=== PATIENT | female | born 1945 | race Caucasian/White ===

== ENCOUNTER → 2017-03-03 18:50 | Outpatient (CLI) | payer MEDICARE ==
[2014-12-19 01:03] VITALS: BMI 35.2
[~2017-03-03 18:50] MED LIST: BAYER CHEWABLE81 MG PO; CRESTOR5 MG PO; HYOSCYAMINE0.125 M1 SL; IMDUR30 MG PO; IPRAT-ALBUT 0.5-3 ML UPD; LACTINEX C1 TAB.CHEW PO; LIBRAX CAPSULE1 CAP PO; METAMUCIL PACKE1 PKT PO; NICODERM C1 PATCH .3 TD; NORVASC5 MG PO; PRILOSEC20 MG PO; QUESTRAN PACK4 G/PKT PO; STERAPRED 5MG 125 MG PO; ZANAFLEX4 MG PO; ZPAK PO; [UNRECOGNIZED DRUG - OTHER] PO
== END | disposition home or self-care (01) ==
LOC: D.MAMMO 15:15
DX: Z12.31 Encounter for screening mammogram for malignant neoplasm of breast (principal)

== ENCOUNTER 2018-01-19 12:20 | Emergency (ER) | payer MEDICARE, MEDICAID ==
[~2018-01-19] VITALS: Ht 157.5 cm; Wt 80.9 kg
[2018-01-19 12:30] VITALS: BP 112/75; Ht 157.5 cm; Wt 80.9 kg
[2018-01-19 13:26] LABS: BASOPHILS 0.3 % (0-2); EOSINOPHILS 1.5 % (0-7); HEMATOCRIT 43.1 % (36.0-48.0); IMMATURE GRANULOCYTES 0.2 % (0-5); LYMPHOCYTES 30.4 % (15-50); MCH 31.9 pg (26.0-34.0); MCHC 34.8 g/dL (31.0-37.0); MCV 91.7 fL (80.0-100.0); MEAN PLATELET VOLUME 9.6 fL (7.4-10.4); MONOCYTES 9.2 % (2-11); NEUTROPHILS 58.4 % (40-80); PLATELET COUNT 236 10x3/uL (130-400); RDW 13.3 % (11.5-14.5); WBC 10.9 10x3/uL (4.8-10.8)
[2018-01-19 13:36] LABS: APPEARANCE HAZY (CLEAR); BILIRUBIN NEGATIVE (NEGATIVE); COLOR DK YELLOW (YELLOW); GLUCOSE NEGATIVE (NEGATIVE); KETONE MODERATE mg/dL (NEGATIVE); NITRITE NEGATIVE (NEGATIVE); PROTEIN 1+ mg/dL (NEGATIVE); SPECIFIC GRAVITY 1.015 (1.005-1.020); UROBILINOGEN NORMAL (NORMAL)
[2018-01-19 13:40] LABS: BACTERIA MODERATE /hpf (NONE SEEN); GRANULAR CAST OCC /lpf (NONE SEEN); HYALINE CAST 0-5 /lpf (NONE SEEN); MUCUS >1+ /lpf (NONE SEEN); RED CELLS - URINE 0-5 /hpf (0-5)
[2018-01-19 13:44] LABS: ALBUMIN 3.6 g/dL (3.4-5.0); ANION GAP 13.9 mmol/L (8-16); BILIRUBIN - TOTAL 0.41 mg/dL (0.2-1.3); CALCIUM 8.8 mg/dL (8.5-10.1); CARBON DIOXIDE 24.3 mmol/L (21.0-32.0); POTASSIUM - SERUM 4.2 mmol/L (3.5-5.1); PROTEIN - SERUM 7.6 g/dL (6.4-8.2)
[2018-01-19 14:57] LABS: AMYLASE - SERUM 33 U/L (25-115); LIPASE 71 U/L (73-393)
[2018-01-19] MEDS ORDERED: MACROBID100 MG PO (18:29)
[2018-01-19] MEDS ORDERED: ZOFRAN4 MG PO (18:29)
== END 2018-01-19 19:24 | disposition home or self-care (01) ==
LOC: D.ER 12:20
PROVIDERS: Family Medicine
DX: N39.0 Urinary tract infection, site not specified (principal); R10.9 Unspecified abdominal pain; R19.7 Diarrhea, unspecified; E11.9 Type 2 diabetes mellitus without complications; I10 Essential (primary) hypertension; K21.9 Gastro-esophageal reflux disease without esophagitis; Z85.41 Personal history of malignant neoplasm of cervix uteri; F17.200 Nicotine dependence, unspecified, uncomplicated

== ENCOUNTER 2018-01-21 12:37 | Emergency (ER) | payer MEDICARE, MEDICAID ==
[~2018-01-21] VITALS: Ht 157.5 cm; Wt 85.0 kg
[~2018-01-21 12:37] MED LIST changes: +MACROBID100 MG PO; +ZOFRAN4 MG PO
[2018-01-21 12:56] VITALS: Ht 157.5 cm; Wt 85.0 kg
[2018-01-21 13:34] LABS: BASOPHILS 0.5 % (0-2); EOSINOPHILS 1.8 % (0-7); HEMATOCRIT 41.4 % (36.0-48.0); IMMATURE GRANULOCYTES 0.2 % (0-5); LYMPHOCYTES 37.4 % (15-50); MCH 31.3 pg (26.0-34.0); MCHC 33.8 g/dL (31.0-37.0); MCV 92.6 fL (80.0-100.0); MEAN PLATELET VOLUME 9.5 fL (7.4-10.4); MONOCYTES 8.7 % (2-11); NEUTROPHILS 51.4 % (40-80); PLATELET COUNT 248 10x3/uL (130-400); RBC 4.47 10x6/uL (4.00-5.40); RDW 13.4 % (11.5-14.5); WBC 10.5 10x3/uL (4.8-10.8)
[2018-01-21 13:42] LABS: ALBUMIN 3.4 g/dL (3.4-5.0); ANION GAP 13.3 mmol/L (8-16); BILIRUBIN - TOTAL 0.24 mg/dL (0.2-1.3); CARBON DIOXIDE 24.6 mmol/L (21.0-32.0); CREATININE - SERUM 1.1 mg/dL (0.6-1.3); POTASSIUM - SERUM 3.9 mmol/L (3.5-5.1); PROTEIN - SERUM 7.1 g/dL (6.4-8.2)
[2018-01-21 16:07] VITALS: BP 107/62
== END 2018-01-21 16:09 | disposition home or self-care (01) ==
LOC: D.ER 12:37
PROVIDERS: Family Medicine
DX: R19.7 Diarrhea, unspecified (principal); E11.9 Type 2 diabetes mellitus without complications; I10 Essential (primary) hypertension; Z85.41 Personal history of malignant neoplasm of cervix uteri

== ENCOUNTER 2018-02-10 16:16 | Emergency (ER) | payer MEDICARE, MEDICAID ==
[~2018-02-10] VITALS: Ht 157.5 cm; Wt 85.0 kg
[2018-02-10 16:28] VITALS: Ht 157.5 cm; Wt 85.0 kg
[2018-02-10 17:20] LABS: BASOPHILS 0.4 % (0-2); EOSINOPHILS 2.4 % (0-7); HEMATOCRIT 40.8 % (36.0-48.0); HEMOGLOBIN 14.1 g/dL (12-16); IMMATURE GRANULOCYTES 0.3 % (0-5); LYMPHOCYTES 41.4 % (15-50); MCH 31.6 pg (26.0-34.0); MCHC 34.6 g/dL (31.0-37.0); MCV 91.5 fL (80.0-100.0); MEAN PLATELET VOLUME 9.5 fL (7.4-10.4); MONOCYTES 7.9 % (2-11); NEUTROPHILS 47.6 % (40-80); PLATELET COUNT 266 10x3/uL (130-400); RBC 4.46 10x6/uL (4.00-5.40); RDW 13.7 % (11.5-14.5); WBC 10.7 10x3/uL (4.8-10.8)
[2018-02-10 17:28] LABS: INR 1.04 (0.85-1.17)
[2018-02-10 17:30] LABS: APTT 28.2 SECONDS (22.8-39.4)
[2018-02-10 17:44] LABS: ALBUMIN 3.4 g/dL (3.4-5.0); ALKALINE PHOSPHATASE 104 U/L (46-116); ALT (SGPT) 22 U/L (10-68); BILIRUBIN - TOTAL 0.32 mg/dL (0.2-1.3); CALCIUM 9.1 mg/dL (8.5-10.1); CARBON DIOXIDE 24.8 mmol/L (21.0-32.0); CHLORIDE - SERUM 103 mmol/L (98-107); CREATININE - SERUM 0.9 mg/dL (0.6-1.3); POTASSIUM - SERUM 3.6 mmol/L (3.5-5.1); PROTEIN - SERUM 7.3 g/dL (6.4-8.2); SODIUM 140 mmol/L (136-145); UREA NITROGEN 14 mg/dL (7-18); eGFR NON AFRICAN AMERICAN 65 mL/min (90-120)
[2018-02-10 17:56] LABS: CKMB 0.6 U/L (0.0-3.6); LIPASE 128 U/L (73-393)
[2018-02-10 17:59] LABS: CALC OSMOLALITY 283 mosm/kg (275-300); GLUCOSE 178 mg/dL (74-106); TROPONIN-I < 0.017 ng/mL (0.000-0.060)
[2018-02-10 19:36] LABS: APPEARANCE CLEAR (CLEAR); BILIRUBIN NEGATIVE (NEGATIVE); COLOR YELLOW (YELLOW); GLUCOSE NEGATIVE (NEGATIVE); KETONE NEGATIVE (NEGATIVE); NITRITE NEGATIVE (NEGATIVE); PROTEIN NEGATIVE (NEGATIVE); SPECIFIC GRAVITY 1.015 (1.005-1.020); UROBILINOGEN NORMAL (NORMAL)
[2018-02-10 20:50] VITALS: BP 150/88
== END 2018-02-10 20:50 | disposition home or self-care (01) ==
LOC: D.ER 16:16
PROVIDERS: Family Medicine
DX: R07.9 Chest pain, unspecified (principal); J44.9 Chronic obstructive pulmonary disease, unspecified; Z86.79 Personal history of other diseases of the circulatory system; R06.02 Shortness of breath; I10 Essential (primary) hypertension; I50.9 Heart failure, unspecified; Z85.41 Personal history of malignant neoplasm of cervix uteri; F17.200 Nicotine dependence, unspecified, uncomplicated

== ENCOUNTER → 2018-09-24 08:42 | Outpatient (CLI) | payer MEDICARE, MEDICAID ==
[2018-02-10 16:28] VITALS: BMI 34.3
== END | disposition home or self-care (01) ==
LOC: D.HCCARDIO 08:42
PROVIDERS: ATTEND Internal Medicine Cardiovascular Disease
DX: R07.9 Chest pain, unspecified (principal); I25.10 Atherosclerotic heart disease of native coronary artery without angina pectoris; R06.02 Shortness of breath

== ENCOUNTER → 2019-06-15 12:22 | Outpatient (CLI) | payer MEDICARE, MEDICAID ==
[2018-02-10 16:28] VITALS: BMI 34.3
== END | disposition home or self-care (01) ==
LOC: D.HCCECHO 12:22
PROVIDERS: ATTEND Internal Medicine Cardiovascular Disease
DX: I10 Essential (primary) hypertension (principal)

== ENCOUNTER → 2020-09-28 09:24 | Outpatient (CLI) | payer MEDICARE, MEDICAID ==
[2018-02-10 16:28] VITALS: BMI 34.3
--- NOTE | 2020-10-02 08:09 | ST ---
PATIENT:BABITA MCKEON [facility] MEDICAL RECORD: [id number] SEX: F LOCATION:[facility] ORDER #: ADMISSION DATE: 09/28/20 AGE OF PATIENT: 75 REFERRING PHYSICIAN: INTERPRETING PHYSICIAN: YRN MURPHY MD DATE OF SERVICE: 09/28/2020 NUCLEAR STRESS TEST GATED IMAGES: Gated is normal. Normal wall motion. Normal EF. Calculated EF 76%. SPECT IMAGING: SPECT imaging was performed. Short axis view: Short axis view shows good uptake along the anterior wall, lateral wall, and inferior wall. Horizontal axis: Horizontal axis shows good uptake along the anterior wall and inferior wall. Vertical axis: Vertical axis shows good uptake along the lateral wall and septum. FINAL IMPRESSION: 1. Normal gated, normal wall motion, normal EF 76%. 2. Normal SPECT imaging. TRANSINT:[id number] Voice Confirmation ID: [id number] DOCUMENT ID: [id number] YRN MURPHY MD at 0809 CC: [id number] DICTATION DATE: 09/29/20 1059 CHIEF SERVICE OBSERVER: 09/30/20 0324 DEP CLI 09/28/20 [id number] [place] [address]
== END | disposition home or self-care (01) ==
LOC: D.HCCARDIO 09:24
PROVIDERS: ATTEND Internal Medicine Interventional Cardiology
DX: I25.10 Atherosclerotic heart disease of native coronary artery without angina pectoris (principal)